=== PATIENT | male | born 1965 | race Caucasian/White ===

== ENCOUNTER 2018-08-19 11:11 | Emergency (ER) | payer BC ==
[2018-08-19] MEDS ORDERED: Sodium Chloride 0.9% 10 ML Syringe FLUSH PRN (11:33)
--- NOTE | 2018-08-19 11:40 | EDM.PDOC ---
ED HPI GENERAL MEDICAL PROBLEM - General Chief Complaint: Chest Pain Stated Complaint: CHEST PAIN Time Seen by Provider: 08/19/18 11:23 Source of Information: Reports: Patient, RN Notes Reviewed - History of Present Illness INITIAL COMMENTS - FREE TEXT/NARRATIVE: 53-year-old male comes in with left anterior chest discomfort. He's been having this off and on for the past week or so but somewhat more frequently the last couple of days. He describes this as an ache type feeling that will at times radiate to the left shoulder or to the left back. Episodes of discomfort are usually very brief. Had no nausea vomiting or diaphoresis. He has had history of hypertension and has been on medication for that for about 15 years. He has had a lot of chest discomfort in the past and has had 2 prior angiograms. He states at the time of his last angiogram 5-7 years ago there was no significant blockage. He does not smoke and is not diabetic. Chest Pain Score (Numeric/FACES): 4 - Related Data Allergies Allergy/AdvReac Type Severity Reaction Status Date / Time No Known Allergies Allergy Verified 08/19/18 11:20 Home Meds: Home Meds Aspirin [Halfprin] 81 mg PO DAILY 02/21/14 [History] Ezetimibe/Simvastatin [Vytorin 10-20 mg Tablet] 10 - 20 mg PO DAILY 02/21/14 [ History] Lisinopril 5 mg PO DAILY 02/21/14 [History] Metoprolol Succinate 50 mg PO DAILY 02/21/14 [History] Pantoprazole Sodium 40 mg PO DAILY 02/21/14 [History] Past Medical History Cardiovascular History: Reports: High Cholesterol, Hypertension Social & Family History - Tobacco Use Smoking Status *Q: Never Smoker Second Hand Smoke Exposure: No - Caffeine Use Caffeine Use: Reports: Coffee - Recreational Drug Use Recreational Drug Use: No ED ROS GENERAL - Review of Systems Review Of Systems: See Below Constitutional: Denies: Fever, Chills, Diaphoresis HEENT: Reports: No Symptoms Respiratory: Denies: Shortness of Breath, Pleuritic Chest Pain, Cough Cardiovascular: Denies: Chest Pain GI/Abdominal: Denies: Abdominal Pain, Nausea, Vomiting Musculoskeletal: Reports: Shoulder Pain (Occasional). Denies: Arm Pain, Leg Pain Skin: Reports: No Symptoms Neurological: Reports: No Symptoms ED EXAM, GENERAL - Physical Exam Exam: See Below General Appearance: Alert, No Apparent Distress Eye Exam: Bilateral Eye: PERRL Head: Atraumatic. No: Facial Swelling Neck: Supple, Full Range of Motion Respiratory/Chest: No Respiratory Distress, Lungs Clear, Normal Breath Sounds, Chest Non-Tender Cardiovascular: Regular Rate, Rhythm GI/Abdominal: Soft, Non-Tender Back Exam: No: CVA Tenderness (L), CVA Tenderness (R) Extremities: Normal Inspection. No: Pedal Edema, Leg Pain Neurological: Alert, Oriented, No Motor/Sensory Deficits Skin Exam: Warm, Dry, Normal Color Course - Vital Signs Last Recorded V/S: Last Vital Signs Temp 98.1 F 08/19/18 11:18 Pulse 54 L 08/19/18 11:18 Resp 16 08/19/18 11:18 BP 136/96 H 08/19/18 11:18 Pulse Ox 96 08/19/18 11:18 - Orders/Labs/Meds Orders: Active Orders 24 hr Category Date Time Status EKG 12 Lead [EKG Documentation Completion] [RC] STAT Care 08/19/18 11:35 Active Peripheral IV Care [RC] . DIRECTED Care 08/19/18 11:34 Active Chest 1V Frontal [CR] Stat Exams 08/19/18 11:34 Taken Peripheral IV Insertion Adult [OM.PC] Stat Oth 08/19/18 11:34 Ordered Labs: Laboratory Tests 08/19/18 08/19/18 08/19/18 Range/Units 11:50 11:50 13:25 WBC 7.31 (4.23-9.07) K/mm3 RBC 5.36 (4.63-6.08) M/mm3 Hgb 16.3 (13.7-17.5) gm/L Hct 47.2 (40.1-51.0) % MCV 88.1 (79.0-92.2) fl MCH 30.4 (25.7-32.2) pg MCHC 34.5 (32.2-35.5) g/dl RDW Std Deviation 40.9 (35.1-43.9) fL Plt Count 156 L (163-337) K/mm3 MPV 11.4 (9.4-12.3) fl Neut % (Auto) 61.3 (34.0-67.9) % Lymph % (Auto) 29.3 (21.8-53.1) % [place] % (Auto) 5.9 (5.3-12.2) % Eos % (Auto) 3.0 (0.8-7.0) Baso % (Auto) 0.4 (0.1-1.2) % Neut # (Auto) 4.48 (1.78-5.38) K/mm3 Lymph # (Auto) 2.14 (1.32-3.57) K/mm3 [place] # (Auto) 0.43 (0.30-0.82) K/mm3 Eos # (Auto) 0.22 (0.04-0.54) K/mm3 Baso # (Auto) 0.03 (0.01-0.08) K/mm3 Sodium 142 (136-145) mEq/L Potassium 4.1 (3.5-5.1) mEq/L Chloride 106 (98-107) mEq/L Carbon Dioxide 26 (21-32) mEq/L Anion Gap 14.1 (5-15) BUN 15 (7-18) mg/dL Creatinine 1.1 (0.7-1.3) mg/dL Est Cr Clr Drug Dosing 73.41 mL/min Estimated GFR (MDRD) > 60 (>60) mL/min BUN/Creatinine Ratio 13.6 L (14-18) Glucose 118 H (74-106) mg/dL Calcium 9.4 (8.5-10.1) mg/dL Total Bilirubin 1.3 H (0.2-1.0) mg/dL AST 58 H (15-37) U/L ALT 103 H (16-63) U/L Alkaline Phosphatase 67 (46-116) U/L Troponin I < 0.017 < 0.017 (0.00-0.056) ng/mL Total Protein 7.5 (6.4-8.2) g/dl Albumin 3.8 (3.4-5.0) g/dl Globulin 3.7 gm/dL Albumin/Globulin Ratio 1.0 (1-2) Meds: Medications Discontinued Medications Generic Name Dose Route Start Last Admin Trade Name Freq PRN Reason Stop Dose Admin Sodium Chloride 10 ml 08/19/18 11:33 08/19/18 11:54 Saline Flush FLUSH 10 ml ASDIRECTED PRN Administration Keep Vein Open - Re-Assessments/Exams Free Text/Narrative Re-Assessment/Exam: 08/19/18 14:54 Repeat troponin did come back normal as well. X-ray was normal, EKG looked fine. Other labs all relatively normal. Bilirubin, liver enzymes very slightly elevated but he has not been having right upper abdominal discomfort or upper abd discomfort. Discharge instructions as documented. Departure - Departure Time of Disposition: 15:00 Disposition: Home, Self-Care 01 Condition: Fair Clinical Impression: Atypical chest pain Instructions: Nonspecific Chest Pain, [id number] Referrals: Lesli Aden MD [Primary Care Provider] - Forms: ED Department Discharge Additional Instructions: Continue current medications as prescribed, plan to follow-up with your regular medical provider in about 2-1/2 weeks as planned. Return to ED as needed if symptoms worsening in any way. - My Orders Last 24 Hours: My Active Orders 08/19/18 11:34 Peripheral IV Care [RC] . DIRECTED Chest 1V Frontal [CR] Stat Peripheral IV Insertion Adult [OM.PC] Stat 08/19/18 11:35 EKG 12 Lead [EKG Documentation Completion] [RC] STAT - Assessment/Plan Last 24 Hours: My Active Orders 08/19/18 11:34 Peripheral IV Care [RC] . DIRECTED Chest 1V Frontal [CR] Stat Peripheral IV Insertion Adult [OM.PC] Stat 08/19/18 11:35 EKG 12 Lead [EKG Documentation Completion] [RC] STAT
--- NOTE | 2018-08-20 18:27 | CR ---
Chest: Portable view of the chest was obtained. Comparison: No prior chest x-ray. Heart size and mediastinum are normal. Lungs are clear. Bony structures are grossly intact. Impression: 1. Nothing acute is appreciated on portable chest x-ray. Diagnostic code #1
== END 2018-08-19 14:55 | disposition home or self-care (01) ==
LOC: JD.ED 11:11
DX: R07.89 Other chest pain (principal); I10 Essential (primary) hypertension; E78.00 Pure hypercholesterolemia, unspecified; Z79.82 Long term (current) use of aspirin; Z79.899 Other long term (current) drug therapy
CPT/HCPCS: 36415; 71045; 71045-26; 80053; 84484; 85025; 93005; 99284; 99285-25

== ENCOUNTER 2020-01-18 22:59 | Emergency (ER) | payer BC ==
--- NOTE | 2020-01-18 23:34 | EDM.PDOC ---
ED HPI GENERAL MEDICAL PROBLEM - General Chief Complaint: Chest Pain Stated Complaint: CHEST PAIN Time Seen by Provider: 01/18/20 23:05 Source of Information: Reports: Patient, Family () History Limitations: Reports: No Limitations - History of Present Illness INITIAL COMMENTS - FREE TEXT/NARRATIVE: Mr. Le is a very pleasant 54-year-old gentleman with a past medical history significant for coronary artery disease, who tells me that he had been experiencing sharp retrosternal chest pain with associated dyspnea on and off for the past 6 to 8 months. Sometimes the pain would occur at rest, but most of the time it occurred with exertion. He saw his PCP on 01/10/2020, who ordered a cardiac CT, which returned with a high calcium score. The patient then saw a oil tank car cleaner this past 01/16/2020, who ordered him to go to [facility], where he was admitted to the hospital. The following day, yesterday, , 01/17/2020, the patient underwent a coronary angiogram and placement of a single drug-eluting stent to the ostial RCA. The patient was discharged home earlier today. He now presents to the ED stating that he developed a retrosternal burning chest pain that radiated to his left scapula around 13:00 this afternoon, while sitting in a chair. The pain came and went, lasting about 1 hour, then recurring about 30 to 40 minutes later. He had no associated dyspnea, diaphoresis, nausea, or sense of impending doom, and he notes that the sensation was different than the chest pain that he has been experiencing for the past 6 to 8 months. He states that he took a single sublingual nitroglycerin around 22:30, which gave him near complete relief of his pain. At present, he is now feeling only a slight amount of discomfort under his left pectoralis muscle. Here in the ED, the patient is initially found to be slightly bradycardic at 59 bpm, otherwise, he is hemodynamically stable, afebrile, saturating 98% on room air. Other than the chest pain issue, the patient denies recent fever, chills, sore throat, ear pain, nasal or sinus congestion, cough, dyspnea, palpitations, nausea, vomiting, constipation, diarrhea, abdominal pain, urinary symptoms, recent weight gain or weight loss, recent bloody bowel movements or black bowel movements, recent joint aches, headaches, or rashes. The patient's PCP is Dr. Lesli Aden. The [employer] Tender that the patient saw on 01/16/[address] Sanjuanita Edmonds. The [employer] Tender that performed the coronary angiogram was Dr. Torito Bunch. Mid-Sternal Chest Pain Score (Numeric/FACES): 6 - Related Data Allergies Allergy/AdvReac Type Severity Reaction Status Date / Time No Known Allergies Allergy Verified 01/18/20 23:03 Home Meds: Home Meds Aspirin [Halfprin] 81 mg PO DAILY 02/21/14 [History] Lisinopril 5 mg PO DAILY 02/21/14 [History] Metoprolol Succinate 50 mg PO DAILY 02/21/14 [History] Pantoprazole Sodium 40 mg PO DAILY 02/21/14 [History] Nitroglycerin [Nitrostat] 0.4 mg SL ASDIRECTED PRN 01/18/20 [History] Prasugrel HCl [Effient] 10 mg PO DAILY 01/18/20 [History] Rosuvastatin Calcium 20 mg PO DAILY 01/18/20 [History] Isosorbide Mononitrate [Imdur] 1 tab PO QAM #30 tab.er 01/19/20 [Rx] Past Medical History HEENT History: Reports: Impaired Vision (wears glasses) Cardiovascular History: Reports: CAD, High Cholesterol, Hypertension Gastrointestinal History: Reports: GERD Endocrine/Metabolic History: Reports: Other (See Below) (Prediabetes) - Past Surgical History Cardiovascular Surgical History: Reports: Coronary Artery Stent (ostial RCA, 01/17/2020), Other (See Below) (Coronary angiogram x 3) GI Surgical History: Reports: Hernia, Abdominal (umbilical, when 9 months old) Social & Family History - Tobacco Use Smoking Status *Q: Never Smoker Tobacco Use Within Last Twelve Months: Smokeless Tobacco (Quit chewing 2004) - Caffeine Use Caffeine Use: Reports: Coffee - Alcohol Use Alcohol Use History: No Date/Time of Last Drink Comment: Stopped drinking 1985 - Recreational Drug Use Recreational Drug Use: No - Living Situation & Occupation Living situation: Reports: , with Spouse, with Family (1 aduld child) 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 ED EXAM, GENERAL - Physical Exam Exam: See Below Exam Limited By: No Limitations General Appearance: Alert, WD/WN, No Apparent Distress Eye Exam: Bilateral Eye: EOMI, Normal Inspection Ears: Normal External Exam, Hearing Grossly Normal Nose: Normal Inspection Throat/Mouth: Normal Inspection, Normal Lips, Normal Voice, No Airway Compromise Head: Atraumatic, Normocephalic Neck: Normal Inspection, Full Range of Motion Respiratory/Chest: No Respiratory Distress, Lungs Clear, Normal Breath Sounds, No Accessory Muscle Use, Chest Non-Tender (including the sternum and left chest) Cardiovascular: Normal Peripheral Pulses, No Edema, No Gallop, No JVD, No Murmur, No Rub, Bradycardia (regular) Peripheral Pulses: 3+: Radial (L), Radial (R) GI/Abdominal: Normal Bowel Sounds, Soft, Non-Tender, No Organomegaly, No Distention, No Abnormal Bruit, No Mass (Male) Exam: Deferred Rectal (Males) Exam: Deferred Back Exam: Normal Inspection, Full Range of Motion, NT Extremities: Normal Inspection, Normal Range of Motion, No Pedal Edema, Normal Capillary Refill Neurological: Alert, Oriented, Normal Cognition, No Motor/Sensory Deficits Psychiatric: Normal Affect Skin Exam: Warm, Dry, Intact, Normal Color, No Rash EKG INTERPRETATION EKG Date: 01/18/20 Time: 23:01 Rhythm: NSR Rate (Beats/Min): 60 Ione: LAD-Left Ione Deviation P-Wave: Present QRS: Other (Late transition) ST-T: Normal QT: Normal Comparison: No Change (08/19/2018) Course - Vital Signs Last Recorded V/S: Last Vital Signs Temp 36.4 C 01/18/20 23:03 Pulse 59 L 01/18/20 23:03 Resp 19 01/18/20 23:03 BP 136/85 01/18/20 23:03 Pulse Ox 98 01/18/20 23:03 - Orders/Labs/Meds Orders: Active Orders 24 hr Category Date Time Status EKG 12 Lead [EKG Documentation Completion] [RC] STAT Care 01/18/20 23:17 Active Chest 2V [CR] Stat Exams 01/18/20 23:29 Taken Labs: Laboratory Tests 01/18/20 01/18/20 01/19/20 Range/Units 23:05 23:05 01:25 WBC 7.92 (4.23-9.07) K/mm3 RBC 5.25 (4.63-6.08) M/mm3 Hgb 16.3 (13.7-17.5) gm/dl Hct 46.7 (40.1-51.0) % MCV 89.0 (79.0-92.2) fl MCH 31.0 (25.7-32.2) pg MCHC 34.9 (32.2-35.5) g/dl RDW Std Deviation 40.1 (35.1-43.9) fL Plt Count 178 (163-337) K/mm3 MPV 11.4 (9.4-12.3) fl Neut % (Auto) 57.2 (34.0-67.9) % Lymph % (Auto) 32.1 (21.8-53.1) % [place] % (Auto) 8.6 (5.3-12.2) % Eos % (Auto) 1.6 (0.8-7.0) Baso % (Auto) 0.4 (0.1-1.2) % Neut # (Auto) 4.53 (1.78-5.38) K/mm3 Lymph # (Auto) 2.54 (1.32-3.57) K/mm3 [place] # (Auto) 0.68 (0.30-0.82) K/mm3 Eos # (Auto) 0.13 (0.04-0.54) K/mm3 Baso # (Auto) 0.03 (0.01-0.08) K/mm3 Sodium 140 (136-145) mEq/L Potassium 4.0 (3.5-5.1) mEq/L Chloride 104 (98-107) mEq/L Carbon Dioxide 29 (21-32) mEq/L Anion Gap 11.0 (5-15) BUN 14 (7-18) mg/dL Creatinine 1.4 H (0.7-1.3) mg/dL Est Cr Clr Drug Dosing 60.83 mL/min Estimated GFR (MDRD) 52 (>60) mL/min BUN/Creatinine Ratio 10.0 L (14-18) Glucose 108 H (74-106) mg/dL Calcium 9.2 (8.5-10.1) mg/dL Total Bilirubin 1.5 H (0.2-1.0) mg/dL AST 26 (15-37) U/L ALT 47 (16-63) U/L Alkaline Phosphatase 63 (46-116) U/L Troponin I 0.066 H* 0.072 H* (0.00-0.056) ng/mL Total Protein 7.7 (6.4-8.2) g/dl Albumin 3.8 (3.4-5.0) g/dl Globulin 3.9 gm/dL Albumin/Globulin Ratio 1.0 (1-2) - Re-Assessments/Exams Free Text/Narrative Re-Assessment/Exam: 01/18/20 23:31 As above, the patient received a single drug-eluting stent to his ostial RCA yesterday, 01/17/2020, then developed a midsternal burning that radiates to his left scapula around 13:00 this afternoon. No associated symptoms, and the patient has not identified any modifiers, however, he does report that he had significant improvement in his symptoms after he took a single sublingual nitroglycerin. At present, he has only mild left-sided chest discomfort. Of interest, he describes the pain that brings him in tonight is different than the pain that he had been experiencing for the past 6 to 8 months that ultimately resulted in him getting the coronary angiogram and coronary stent. The ECG obtained at triage is unremarkable, with no ischemic changes. I have ordered a work-up that includes blood work and a chest x-ray. Once I have those results, I will endeavor to contact the [facility] [facility] [facility]ender on-call at [facility]. 01/18/20 23:54 Two-view chest radiograph appears to be grossly normal. The cardiac silhouette is within normal limits. No pulmonary vascular congestion. No pleural effus ions. No focal infiltrate. No pneumothorax. Formal read per the Radiologist pending. 01/19/20 00:09 The patient's CBC is unremarkable. His CMP is remarkable for a Cr noted at 1.4, and a blood glucose slightly elevated at 108. His TBil is elevated at 1.5, with the remainder of his CMP being unremarkable. His troponin is mildly elevated at 0.066. 01/19/20 00:56 Case discussed with Rose Mary at [facility] at 00:40. She attempted to contact Dr. Pelletier, without success. She will call me back once she has been able to contact him. 01/19/20 01:17 Called back by Rose Mary with Dr. Bernardo, at 01:12. Dr. Bernardo was able to look at the patient's medical records. She does not believe that the patient's stent thrombosed, as that would cause a STEMI, given its location. She recommended th at we repeat a troponin, but if not significantly elevated, then the patient may be discharged home. She recommended that I prescribe for him Imdur 30 mg po QAM, and have the patient take his sublingual nitroglycerin on an as-needed basis. The patient is going to be following up with his [employer] Tender in 1 week - they will be calling him on Tuesday to set an appointment. 01/19/20 01:23 The above plan was discussed with the patient and his . They are agreeable. His second troponin is being drawn now. 01/19/20 02:23 The patient's repeat troponin is only slightly higher than previously, now at 0.072. 01/19/20 02:27 Test results discussed with the patient and his . I will discharge him home with a prescription for Imdur. Today being January 18, the only pharmacy that will be open today is the [facility], and they will only be open between 1 - 3 PM today. The patient will continue to take his sublingual nitroglycerin on an as-needed basis, and he will follow-up with his [employer] Tender next week. Departure - Departure Time of Disposition: 02:28 Disposition: Home, Self-Care 01 Condition: Good Clinical Impression: Angina pectoris Prescriptions: Isosorbide Mononitrate [Imdur] 1 tab PO QAM #30 tab.er Instructions: Angina, [id number] Referrals: Lesli Aden MD [Primary Care Provider] - Torito Bunch MD [Ordering Only Provider] - Sanjuanita Edmonds MD [Ordering Only Provider] - Forms: ED Department Discharge Additional Instructions: You were seen in the emergency room for central chest pain that radiated to your left shoulder blade. Work-up in the ER included blood work, a chest x-ray, and an ECG. Your ECG showed no ischemic changes, however, your troponin (heart enzyme) was slightly elevated. Your case was discussed with the [employer] Tender Dr. Bernardo, who recommended that check a second troponin, and if not significantly higher than the first one, that you be discharged home and start taking the long-acting nitroglycerin type medicine Imdur. A prescription for Imdur has been sent to the [facility]. The pharmacy will be open between 1:00 and 3:00 this afternoon. Take 1 tablet of Imdur every morning, as prescribed. You may continue to take your sublingual nitroglycerin on an as-needed basis. You will be contacted by your [employer] Tender's office on 01/21/2020, in order to make an appointment to see your [employer] Tender in about a week. If any other problems, including chest pain not relieved by nitroglycerin, please do not hesitate to return to the ER. Sepsis Event Note (ED) - Evaluation Sepsis Screening Result: No Definite Risk - Focused Exam Vital Signs: Vital Signs Temp Pulse Resp BP Pulse Ox 01/18/20 23:03 36.4 C 59 L 19 136/85 98 - My Orders Last 24 Hours: My Active Orders 01/18/20 23:17 EKG 12 Lead [EKG Documentation Completion] [RC] STAT 01/18/20 23:29 Chest 2V [CR] Stat - Assessment/Plan Last 24 Hours: My Active Orders 01/18/20 23:17 EKG 12 Lead [EKG Documentation Completion] [RC] STAT 01/18/20 23:29 Chest 2V [CR] Stat
--- NOTE | 2020-01-19 09:37 | CR ---
Chest: 2 views of the chest were obtained. Comparison: No prior chest imaging is available. Heart size and mediastinum are normal. Lungs are clear with no acute parenchymal change. Bony structures shows endplate spurring and scattered disc space narrowing within the spine. Impression: 1. Nothing acute is seen on 2 view chest x-ray. Diagnostic code #2 This report was dictated in MDT
== END 2020-01-19 02:43 | disposition home or self-care (01) ==
LOC: JD.ED 22:59
DX: I20.9 Angina pectoris, unspecified (principal); I10 Essential (primary) hypertension; E78.00 Pure hypercholesterolemia, unspecified; K21.9 Gastro-esophageal reflux disease without esophagitis; Z95.5 Presence of coronary angioplasty implant and graft; Z79.82 Long term (current) use of aspirin; Z79.899 Other long term (current) drug therapy
CPT/HCPCS: 36415; 71046; 71046-26; 80053; 84484; 85025; 93005; 93010; 99284; 99285-25

== ENCOUNTER 2020-01-20 23:22 | Emergency (ER) | payer BC ==
[2020-01-20] MEDS ORDERED: Lactated Ringers 1,000 ML IV SCH (23:45)
[2020-01-20] MEDS ORDERED: Aspirin 81 MG Tab.Chew PO ONE (23:50)
--- NOTE | 2020-01-20 23:50 | EDM.PDOC ---
ED HPI GENERAL MEDICAL PROBLEM - General Chief Complaint: Chest Pain Stated Complaint: chest pain Time Seen by Provider: 01/20/20 23:40 - History of Present Illness INITIAL COMMENTS - FREE TEXT/NARRATIVE: 54-year-old male presents the emergency room with chest pain. On the second of this month the patient had a stent placed. And he has had intermittent chest discomfort since that time he was seen here Tuesday the day he was discharged from the hospital in [place] and he was started on Imdur 30 mg daily he still having intermittent pain. He last tried nitro around 5:00 this evening this helped perhaps a little bit. But he has not had complete relief. Describes his pain as being in the substernal area and radiating to his shoulder blade on the left. Occasionally to his shoulder. The patient has not been very active and often gets his discomfort at rest. The pain does not seem to have a positional component with it. The patient does not have any heartburn or reflux symptoms. Middle Chest Pain Score (Numeric/FACES): 5 - Related Data Allergies Allergy/AdvReac Type Severity Reaction Status Date / Time No Known Allergies Allergy Verified 01/20/20 23:35 Home Meds: Home Meds Aspirin [Halfprin] 81 mg PO DAILY 02/21/14 [History] Lisinopril 5 mg PO DAILY 02/21/14 [History] Metoprolol Succinate 50 mg PO DAILY 02/21/14 [History] Pantoprazole Sodium 40 mg PO DAILY 02/21/14 [History] Nitroglycerin [Nitrostat] 0.4 mg SL ASDIRECTED PRN 01/18/20 [History] Prasugrel HCl [Effient] 10 mg PO DAILY 01/18/20 [History] Rosuvastatin Calcium 20 mg PO DAILY 01/18/20 [History] Isosorbide Mononitrate [Imdur] 1 tab PO QAM #30 tab.er 01/19/20 [Rx] Isosorbide Mononitrate [Imdur] 60 mg PO DAILY #30 tab.er 01/21/20 [Rx] Past Medical History HEENT History: Reports: Impaired Vision Other HEENT History: Wears glasses Cardiovascular History: Reports: CAD, High Cholesterol, Hypertension Gastrointestinal History: Reports: GERD Endocrine/Metabolic History: Reports: Other (See Below) - Past Surgical History Cardiovascular Surgical History: Reports: Coronary Artery Stent, Other (See Below) GI Surgical History: Reports: Hernia, Abdominal Social & Family History - Tobacco Use Smoking Status *Q: Never Smoker - Caffeine Use Caffeine Use: Reports: Coffee - Recreational Drug Use Recreational Drug Use: No - Living Situation & Occupation Living situation: Reports: , with Spouse, with Family (1 aduld child) 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[employer]) ED ROS GENERAL - Review of Systems Review Of Systems: See Below Constitutional: Reports: No Symptoms HEENT: Reports: No Symptoms Respiratory: Reports: No Symptoms Cardiovascular: Reports: Chest Pain GI/Abdominal: Reports: No Symptoms : Reports: No Symptoms Musculoskeletal: Reports: No Symptoms Neurological: Reports: No Symptoms ED EXAM, GENERAL - Physical Exam Exam: See Below Exam Limited By: No Limitations General Appearance: Alert, No Apparent Distress Head: Atraumatic, Normocephalic Neck: Normal Inspection, Supple, Non-Tender, Full Range of Motion Course - Vital Signs Last Recorded V/S: Last Vital Signs Temp 36.1 C 01/20/20 23:28 Pulse 54 L 01/20/20 23:28 Resp 14 01/20/20 23:28 BP 112/73 01/21/20 00:36 Pulse Ox 97 01/20/20 23:28 - Orders/Labs/Meds Orders: Active Orders 24 hr Category Date Time Status EKG 12 Lead [EKG Documentation Completion] [RC] STAT Care 01/20/20 23:36 Active Chest 1V Frontal [CR] Stat Exams 01/20/20 23:52 Taken Lactated Ringers [Ringers, Lactated] 1,000 ml Med 01/20/20 23:45 Active IV ASDIRECTED Nitroglycerin [Nitrostat] Med 01/20/20 23:50 Active 0.4 mg SL Q5M PRN Medication Orders Lactated Ringer's (Ringers, Lactated) 1,000 mls @ 25 mls/hr IV ASDIRECTED LORA Last Admin: 01/21/20 00:00 Dose: 25 mls/hr Documented by: MEREDITH Nitroglycerin (Nitrostat) 0.4 mg SL Q5M PRN PRN Reason: Chest Pain Last Admin: 01/21/20 00:36 Dose: 0.4 mg Documented by: Admin: 01/20/20 23:58 Dose: 0.4 mg Documented by: MEREDITH Labs: Laboratory Tests 01/20/20 01/20/20 01/20/20 Range/Units 23:55 23:55 23:55 WBC 8.17 (4.23-9.07) K/mm3 RBC 5.20 (4.63-6.08) M/mm3 Hgb 16.1 (13.7-17.5) gm/dl Hct 46.2 (40.1-51.0) % MCV 88.8 (79.0-92.2) fl MCH 31.0 (25.7-32.2) pg MCHC 34.8 (32.2-35.5) g/dl RDW Std Deviation 40.0 (35.1-43.9) fL Plt Count 164 (163-337) K/mm3 MPV 11.7 (9.4-12.3) fl Neut % (Auto) 56.5 (34.0-67.9) % Lymph % (Auto) 31.6 (21.8-53.1) % Eagle % (Auto) 8.9 (5.3-12.2) % Eos % (Auto) 2.1 (0.8-7.0) Baso % (Auto) 0.5 (0.1-1.2) % Neut # (Auto) 4.62 (1.78-5.38) K/mm3 Lymph # (Auto) 2.58 (1.32-3.57) K/mm3 Eagle # (Auto) 0.73 (0.30-0.82) K/mm3 Eos # (Auto) 0.17 (0.04-0.54) K/mm3 Baso # (Auto) 0.04 (0.01-0.08) K/mm3 PT 11.8 (9.7-12.0) SECONDS INR 1.09 APTT 26 (22-31) SECONDS Sodium 139 (136-145) mEq/L Potassium 4.0 (3.5-5.1) mEq/L Chloride 103 (98-107) mEq/L Carbon Dioxide 26 (21-32) mEq/L Anion Gap 14.0 (5-15) BUN 14 (7-18) mg/dL Creatinine 1.3 (0.7-1.3) mg/dL Est Cr Clr Drug Dosing 65.51 mL/min Estimated GFR (MDRD) 57 (>60) mL/min BUN/Creatinine Ratio 10.8 L (14-18) Glucose 89 (74-106) mg/dL Calcium 9.2 (8.5-10.1) mg/dL Total Bilirubin 1.5 H (0.2-1.0) mg/dL AST 50 H (15-37) U/L ALT 74 H (16-63) U/L Alkaline Phosphatase 67 (46-116) U/L Troponin I 0.022 (0.00-0.056) ng/mL Total Protein 7.7 (6.4-8.2) g/dl Albumin 3.9 (3.4-5.0) g/dl Globulin 3.8 gm/dL Albumin/Globulin Ratio 1.0 (1-2) Meds: Medications Generic Name Dose Route Start Last Admin Trade Name Freq PRN Reason Stop Dose Admin Lactated Ringer's 1,000 mls @ 25 mls/hr 01/20/20 23:45 01/21/20 00:00 Ringers, Lactated IV 25 mls/hr ASDIRECTED LORA Administration Nitroglycerin 0.4 mg 01/20/20 23:50 01/21/20 00:36 Nitrostat SL 0.4 mg Q5M PRN Administration Chest Pain Discontinued Medications Generic Name Dose Route Start Last Admin Trade Name Freq PRN Reason Stop Dose Admin Aspirin 324 mg 01/20/20 23:50 01/20/20 23:59 Aspirin PO 01/20/20 23:51 324 mg ONETIME ONE Administration Isosorbide Mononitrate 60 mg 01/21/20 01:53 01/21/20 02:18 Imdur PO 01/21/20 01:54 60 mg ONETIME ONE Administration - Re-Assessments/Exams Free Text/Narrative Re-Assessment/Exam: 01/21/20 01:59 Troponin is 0.022 the patient is relatively pain-free at this point after 2 sublingual nitro. His pressure was a little on the low side so we used care with given him the second dose. Chest x-ray is unrevealing EKG shows sinus at [address]-T wave changes he is got some nonspecific very subtle changes in V3 and V4. I discussed situation with Dr. Pelletier polisher apprentice metal bonding helper at [place] where the patient had the stent placed on the second. His recommendation was to increase the Imdur to 60 mg and to give him a dose now he has been taking Imdur 30 mg. He will also have the cardiology clinic called the patient to get him in sooner for recheck. At this time Dr. Pelletier does not feel that the patient is having a stent occlusion which I agree with but I did voice my concern about the continued angina. Departure - Departure Time of Disposition: 02:34 Disposition: Home, Self-Care 01 Clinical Impression: Angina pectoris Referrals: Lesli Aden MD [Primary Care Provider] - Forms: ED Department Discharge Additional Instructions: Return to the emergency room with any questions problems or worsening symptoms. Cardiology should contact you later today for an appointment in the near future. Continue your current medications. However, your Imdur 30 mg has been increased to 60 mg. This will be sent to the [facility] pharmacy. Sepsis Event Note (ED) - Evaluation Sepsis Screening Result: No Definite Risk - Focused Exam Vital Signs: Vital Signs Temp Pulse Resp BP BP Pulse Ox 01/21/20 00:36 112/73 01/20/20 23:58 120/68 01/20/20 23:28 36.1 C 54 L 14 137/83 97 - My Orders Last 24 Hours: My Active Orders 01/20/20 23:36 EKG 12 Lead [EKG Documentation Completion] [RC] STAT 01/20/20 23:45 Lactated Ringers [Ringers, Lactated] 1,000 ml IV ASDIRECTED 01/20/20 23:50 Nitroglycerin [Nitrostat] 0.4 mg SL Q5M PRN 01/20/20 23:52 Chest 1V Frontal [CR] Stat - Assessment/Plan Last 24 Hours: My Active Orders 01/20/20 23:36 EKG 12 Lead [EKG Documentation Completion] [RC] STAT 01/20/20 23:45 Lactated Ringers [Ringers, Lactated] 1,000 ml IV ASDIRECTED 01/20/20 23:50 Nitroglycerin [Nitrostat] 0.4 mg SL Q5M PRN 01/20/20 23:52 Chest 1V Frontal [CR] Stat
[2020-01-20] MEDS: Nitroglycerin 0.4 MG Tab.SL SL PRN (23:58)
[2020-01-21] MEDS: Nitroglycerin 0.4 MG Tab.SL SL PRN (00:36)
[2020-01-21] MEDS ORDERED: Isosorbide Mononitrate 60 MG Tab.ER PO ONE (01:53)
--- NOTE | 2020-01-21 07:04 | CR ---
Chest: Portable view of the chest was obtained. Comparison: Prior chest x-ray of 08/19/18. Heart size and mediastinum are normal. Lungs are clear with no acute parenchymal change. Bony structures are grossly intact. Impression: 1. Nothing acute is seen on portable chest x-ray. Diagnostic code #1 This report was dictated in MDT
== END 2020-01-21 02:51 | disposition home or self-care (01) ==
LOC: JD.ED 23:22
DX: I20.9 Angina pectoris, unspecified (principal); I10 Essential (primary) hypertension; E78.00 Pure hypercholesterolemia, unspecified; K21.9 Gastro-esophageal reflux disease without esophagitis; Z79.899 Other long term (current) drug therapy; Z79.82 Long term (current) use of aspirin; Z95.5 Presence of coronary angioplasty implant and graft
CPT/HCPCS: 36415; 71045; 80053; 84484; 85025; 85610; 85730; 93005; 96360; 96361; 99285; A9270; J7120; 93010; 99284

== ENCOUNTER 2020-02-26 08:45 | Emergency (ER) | payer BC ==
--- NOTE | 2020-02-26 09:14 | EDM.PDOC ---
ED HPI GENERAL MEDICAL PROBLEM - General Chief Complaint: Chest Pain Stated Complaint: CHEST PAIN Time Seen by Provider: 02/26/20 09:09 Source of Information: Reports: Patient History Limitations: Reports: No Limitations - History of Present Illness INITIAL COMMENTS - FREE TEXT/NARRATIVE: 54-year-old male presents to the ED for evaluation of recurrent left precordial chest pains that can come on at any time I while either he is working or even at rest. Patient has been seen on multiple 2 [place] occasions dating back to 2002 with chest pain. He has had multiple angiograms which did not show any significant abnormalities up until January of this year. On January 16 he underwent balloon angioplasty and stent placement in his right coronary artery on January [address] 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 Since that time he has been having intermittent chest pains and had a repeat angiogram on January 21 due to concerns of possible coronary artery dissection. No abnormalities were found. He states he did good up until Tuesday, February 22 when he started to develop left precordial chest pains that respond to nitroglycerin. He estimates he is taken 3 tablets of nitroglycerin in the last few days. He went to cardiac rehab this morning and does not have any chest pain but was referred to the ED for further evaluation because of the history of chest pains over the weekend. Dr. Bunch believes that he probably has a branch coronary artery that is small in caliber and likely causing his intermittent angina. He denies cough or sputum production. Not feel short of breath. He can localize the pain to his left anterior chest and in fact has bruises over the left fourth rib left anterior midclavicular line. He reports he does have a history of GERD but is been well controlled with Prilosec daily. Onset: Other (Left precordial chest pains off and on for the last 4 days.) Duration: Day(s):, Intermittent, Waxing/Waning Location: Reports: Chest (Left precordial chest pain with no radiation to his back neck or shoulder.) Quality: Reports: Pressure ( but there is also a dull ache pressure discomfort as well.), Stabbing (Pains are mostly sharp and stabbing) Severity: Moderate Improves with: Reports: Medication (Nitroglycerin has taken away the pain in all occasions.) Worsens with: Reports: None Context: Denies: Activity, Exercise, Lifting, Sick Contact, Trauma, Other Associated Symptoms: Reports: Chest Pain. Denies: No Other Symptoms (See history of present illness), Confusion, Cough, cough w sputum, Diaphoresis, Fever/Chills, Headaches, Loss of Appetite, Malaise, Nausea/Vomiting, Rash, Seizure, Shortness of Breath, Syncope, Weakness Treatments REGRADER: Reports: Other (see below) (Just his usual medications.) Chest Pain Score (Numeric/FACES): 2 - Related Data Allergies Allergy/AdvReac Type Severity Reaction Status Date / Time No Known Allergies Allergy Verified 02/26/20 08:56 Home Meds: Home Meds Aspirin [Halfprin] 81 mg PO DAILY 02/21/14 [History] Lisinopril 5 mg PO DAILY 02/21/14 [History] Metoprolol Succinate 50 mg PO DAILY 02/21/14 [History] Pantoprazole Sodium 40 mg PO DAILY 02/21/14 [History] Nitroglycerin [Nitrostat] 0.4 mg SL ASDIRECTED PRN 01/18/20 [History] Prasugrel HCl [Effient] 10 mg PO DAILY 01/18/20 [History] Rosuvastatin Calcium 20 mg PO DAILY 01/18/20 [History] Isosorbide Mononitrate [Imdur] 1 tab PO QAM #30 tab.er 01/19/20 [Rx] Isosorbide Mononitrate [Imdur] 60 mg PO DAILY #30 tab.er 01/21/20 [Rx] Past Medical History HEENT History: Reports: Impaired Vision Other HEENT History: Wears glasses Cardiovascular History: Reports: CAD, High Cholesterol, Hypertension, Stents (Single stent placed in the right coronary artery on January 17, [address] 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 Denies: Fever, Chills, Malaise HEENT: Reports: Glasses Respiratory: Reports: No Symptoms Cardiovascular: Reports: Chest Pain (Precordial chest pains off and on since stent placement January 16.). Denies: Dyspnea on Exertion, Edema, Lightheadedness, Orthopnea, Palpitations Endocrine: Reports: No Symptoms GI/Abdominal: Reports: No Symptoms : Reports: Frequency, Other Musculoskeletal: Reports: No Symptoms Skin: Reports: No Symptoms Neurological: Reports: No Symptoms (Treated x1) Psychiatric: Reports: No Symptoms Hematologic/Lymphatic: Reports: No Symptoms Immunologic: Reports: No Symptoms ED EXAM, GENERAL - Physical Exam Exam: See Below Exam Limited By: No Limitations General Appearance: Alert, WD/WN, No Apparent Distress, Anxious, Other (Mildly anxious. Temperature is 36.6. Heart rate was 57 and sinus bradycardia respiratory of 12 with O2 sats of 99% on room air. BP 120/82.) Eye Exam: Bilateral Eye: Normal Inspection (No scleral icterus or blepharal pallor.), PERRL Neck: Normal Inspection, Supple, Non-Tender, Full Range of Motion. No: Carotid Bruit, Lymphadenopathy (L), Lymphadenopathy (R), Thyromegaly Respiratory/Chest: No Respiratory Distress, Lungs Clear, Normal Breath Sounds, No Accessory Muscle Use, Other (He has chest wall tenderness in the midclavicular line over the fourth ribs bilaterally. There is also small bruises in this area measuring approximately 2 cm in diameter. He is not sure how they got there.) Cardiovascular: Normal Peripheral Pulses, Regular Rate, Rhythm, No Edema, No Gallop, No Murmur, No Rub Peripheral Pulses: 3+: Carotid (L), Carotid (R), Radial (L), Radial (R), Posterior Tibial (L), Posterior Tibial (R), Dorsalis Pedis (L), Dorsalis Pedis (R) GI/Abdominal: Normal Bowel Sounds, Soft, Non-Tender, No Organomegaly, No Mass, Pelvis Stable, Rebound Back Exam: Normal Inspection, Full Range of Motion. No: CVA Tenderness (L), CVA Tenderness (R) Extremities: Normal Inspection, Normal Range of Motion, Non-Tender, No Pedal Edema Neurological: Alert, Oriented, CN II-XII Intact, Normal Cognition Psychiatric: Normal Affect, Normal Mood Skin Exam: Warm, Dry, Intact, Normal Color, No Rash EKG INTERPRETATION EKG Date: 02/26/20 Time: 08:48 Rhythm: Other (Sinus bradycardia) Rate (Beats/Min): 57 [place]: LAD-Left [place] Deviation (Left axis deviation of -19 degrees) P-Wave: Present QRS: Other (Q waves in V1 and near Q wave in V2 consider old anteroseptal myocardial infarction. There is decreased voltage in the limb and precordial leads.) ST-T: Other (T wave flattening in leads III, aVF and aVL also in V1 and V2 nonspecific findings) Course - Vital Signs Last Recorded V/S: Last Vital Signs Temp 36.6 C 02/26/20 08:51 Pulse 56 L 02/26/20 09:55 Resp 16 02/26/20 09:55 BP 109/73 02/26/20 09:55 Pulse Ox 96 02/26/20 09:55 - Orders/Labs/Meds Orders: Active Orders 24 hr Category Date Time Status Chest 1V Frontal [CR] Stat Exams 02/26/20 09:09 Taken Sodium Chloride 0.9% [Normal Saline] 1,000 ml Med 02/26/20 09:15 Active IV ASDIRECTED Medication Orders Sodium Chloride (Normal Saline) 1,000 mls @ 100 mls/hr IV ASDIRECTED LORA Last Admin: 02/26/20 09:32 Dose: 100 mls/hr Documented by: CLAUDIA Labs: Laboratory Tests 02/26/20 02/26/20 02/26/20 Range/Units 08:58 08:58 08:58 WBC 7.49 (4.23-9.07) K/mm3 RBC 4.82 (4.63-6.08) M/mm3 Hgb 15.0 (13.7-17.5) gm/dl Hct 43.9 (40.1-51.0) % MCV 91.1 (79.0-92.2) fl MCH 31.1 (25.7-32.2) pg MCHC 34.2 (32.2-35.5) g/dl RDW Std Deviation 42.5 (35.1-43.9) fL Plt Count 167 (163-337) K/mm3 MPV 11.5 (9.4-12.3) fl Neut % (Auto) 66.5 (34.0-67.9) % Lymph % (Auto) 23.9 (21.8-53.1) % [place] % (Auto) 7.3 (5.3-12.2) % Eos % (Auto) 1.6 (0.8-7.0) Baso % (Auto) 0.4 (0.1-1.2) % Neut # (Auto) 4.98 (1.78-5.38) K/mm3 Lymph # (Auto) 1.79 (1.32-3.57) K/mm3 [place] # (Auto) 0.55 (0.30-0.82) K/mm3 Eos # (Auto) 0.12 (0.04-0.54) K/mm3 Baso # (Auto) 0.03 (0.01-0.08) K/mm3 PT 12.5 H (9.7-12.0) SECONDS INR 1.17 APTT 26 (22-31) SECONDS D-Dimer, Quantitative 0.62 H (0.19-0.50) mg/L Sodium 137 (136-145) mEq/L Potassium 4.0 (3.5-5.1) mEq/L Chloride 103 (98-107) mEq/L Carbon Dioxide 27 (21-32) mEq/L Anion Gap 11.0 (5-15) BUN 15 (7-18) mg/dL Creatinine 1.0 (0.7-1.3) mg/dL Est Cr Clr Drug Dosing 85.17 mL/min Estimated GFR (MDRD) > 60 (>60) mL/min BUN/Creatinine Ratio 15.0 (14-18) Glucose 102 (74-106) mg/dL Calcium 9.5 (8.5-10.1) mg/dL Magnesium 2.0 (1.8-2.4) mg/dl Total Bilirubin 1.7 H (0.2-1.0) mg/dL AST 30 (15-37) U/L ALT 57 (16-63) U/L Alkaline Phosphatase 66 (46-116) U/L Troponin I < 0.017 (0.00-0.056) ng/mL C-Reactive Protein <0.2 (<1.0) mg/dL NT-Pro-B Natriuret Pep (0-125) pg/mL Total Protein 7.7 (6.4-8.2) g/dl Albumin 3.9 (3.4-5.0) g/dl Globulin 3.8 gm/dL Albumin/Globulin Ratio 1.0 (1-2) 02/26/20 Range/Units 08:58 WBC (4.23-9.07) K/mm3 RBC (4.63-6.08) M/mm3 Hgb (13.7-17.5) gm/dl Hct (40.1-51.0) % MCV (79.0-92.2) fl MCH (25.7-32.2) pg MCHC (32.2-35.5) g/dl RDW Std Deviation (35.1-43.9) fL Plt Count (163-337) K/mm3 MPV (9.4-12.3) fl Neut % (Auto) (34.0-67.9) % Lymph % (Auto) (21.8-53.1) % [place] % (Auto) (5.3-12.2) % Eos % (Auto) (0.8-7.0) Baso % (Auto) (0.1-1.2) % Neut # (Auto) (1.78-5.38) K/mm3 Lymph # (Auto) (1.32-3.57) K/mm3 [place] # (Auto) (0.30-0.82) K/mm3 Eos # (Auto) (0.04-0.54) K/mm3 Baso # (Auto) (0.01-0.08) K/mm3 PT (9.7-12.0) SECONDS INR APTT (22-31) SECONDS D-Dimer, Quantitative (0.19-0.50) mg/L Sodium (136-145) mEq/L Potassium (3.5-5.1) mEq/L Chloride (98-107) mEq/L Carbon Dioxide (21-32) mEq/L Anion Gap (5-15) BUN (7-18) mg/dL Creatinine (0.7-1.3) mg/dL Est Cr Clr Drug Dosing mL/min Estimated GFR (MDRD) (>60) mL/min BUN/Creatinine Ratio (14-18) Glucose (74-106) mg/dL Calcium (8.5-10.1) mg/dL Magnesium (1.8-2.4) mg/dl Total Bilirubin (0.2-1.0) mg/dL AST (15-37) U/L ALT (16-63) U/L Alkaline Phosphatase (46-116) U/L Troponin I (0.00-0.056) ng/mL C-Reactive Protein (<1.0) mg/dL NT-Pro-B Natriuret Pep 81 (0-125) pg/mL Total Protein (6.4-8.2) g/dl Albumin (3.4-5.0) g/dl Globulin gm/dL Albumin/Globulin Ratio (1-2) Meds: Medications Generic Name Dose Route Start Last Admin Trade Name Freq PRN Reason Stop Dose Admin Sodium Chloride 1,000 mls @ 100 mls/hr 02/26/20 09:15 02/26/20 09:32 Normal Saline IV 100 mls/hr ASDIRECTED LORA Administration - Radiology Interpretation Free Text/Narrative:: 54-year-old male presents to the ED for evaluation of recurrent left precordial chest pains that he been having off and on since stent placement January [address] Bunch in [place]. He had a solitary stent placed in his right coronary artery. He states he had pains off and on in the left precordium for about a week after the procedure and in fact had a follow-up angiogram performed which did not reveal any abnormalities. It is felt that he has a branch vessel off of the rig ht coronary artery that is not receiving adequate perfusion at times causing unstable angina. Over the weekend he had chest pains Tuesday and Tuesday it which responded to nitroglycerin tablets. This morning upon attending cardiac rehab decision made to send him to the ED for further evaluation versus putting him through rehab treatment. He has no chest pain today other than what he can localized to his left anterior chest at the site of a bruise. Lungs are clear. Vital signs are stable. ECG does not show any signs of ischemia. Plan routine labs performed including cardiac markers. - Re-Assessments/Exams Free Text/Narrative Re-Assessment/Exam: 02/26/20 09:44 chest x-ray portable view reveals no abnormalities. Lung ordaz are clear. Cardiac silhouette is within normal limits. 02/26/20 09:50 White blood cell count is 7.49 with auto differential showing 66% neutrophils. Hemoglobin is poor 15.0 with hematocrit of 43.9. Platelet counts 167,000. PT is 12.5 with an INR of 1.17 mildly elevated. PTT is 26 d-dimer is minimally elevated at 0.62 likely from recent procedures. Sodium 137 with potassium of 4.0. Chloride 103 with a bicarb of 27. Anion gap is 11.0 with a BUN of 15. Creatinine is 1.0. GFR remains greater than 60. Glucose 102 with a calcium of 9.5. 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 Troponin I is less than 0.017 and C-reactive protein is less than 0.2. BNP is 81 with a total protein is 7.7. Albumin fraction is 3.9. Discussed the findings with the patient that no abnormalities were detected. He is still getting unstable angina likely from a branch vessel that is partially occluded and causing intermittent spasm. He is already on Imdur and therefore I really do not have anything else to offer him at this time. Advised him to give Dr. Bunch's office a call just to let them know how he is doing but at this point time I do not think any further intervention is indicated. At this time I have released him with no restrictions. He may return to cardiac rehab tomorrow. Departure - Departure Time of Disposition: 09:56 Disposition: Home, Self-Care 01 Reason for Transfer *Q: Other Condition: Fair Clinical Impression: Unstable angina pectoris Referrals: Lesli Aden MD [Primary Care Provider] - Forms: ED Department Discharge Additional Instructions: Evaluation in the emergency room this morning in regards to intermittent left precordial chest pains characteristic of angina or heart pain off and on over the weekend. This made cardiac rehab nurses nervous this morning in the elected to have you seen through the ED before you anticipated in any further cardiac rehab exercise program. As we have discussed you underwent coronary right coronary artery stent placement January [address] Bunch. Follow-up angiogram a week later due to pain did not show any evidence of coronary artery dissection after the balloon angioplasty was performed. You had done well up until this last weekend when you developed left precordial chest pains suggestive of angina or coronary artery spasm. I suspect there is a branch vessel off of the right coronary artery that is causing intermittent spasm and chest pains. This is not uncommon and often will last up to 3 months after a procedure and then usually dissipate or go away. At this time lab tests did not show any signs of elevated cardiac markers and no evidence of extra fluid in the lungs. Chest x-ray was within normal limits as well. It appears that you have unstable angina which means chest pain can come on at any time for no good reason such as heavy exertion etc. Again treat with nitroglycerin as you have been told in the past. I would suggest giving Dr. Bunch's office a call just let them know that you were experiencing some chest pains over the weekend but investigations today were all negative. At this time you were released with no restrictions and may return to cardiac rehab as planned. Sepsis Event Note (ED) - Evaluation Sepsis Screening Result: No Definite Risk - Focused Exam Vital Signs: Vital Signs Temp Pulse Resp BP Pulse Ox 02/26/20 09:55 56 L 16 109/73 96 02/26/20 08:51 36.6 C 57 L 12 120/82 99 - My Orders Last 24 Hours: My Active Orders 02/26/20 09:09 Chest 1V Frontal [CR] Stat 02/26/20 09:15 Sodium Chloride 0.9% [Normal Saline] 1,000 ml IV ASDIRECTED - Assessment/Plan Last 24 Hours: My Active Orders 02/26/20 09:09 Chest 1V Frontal [CR] Stat 02/26/20 09:15 Sodium Chloride 0.9% [Normal Saline] 1,000 ml IV ASDIRECTED
[2020-02-26] MEDS ORDERED: Sodium Chloride 0.9% 1,000 ML IV SCH (09:15)
--- NOTE | 2020-02-26 10:02 | CR ---
Chest: Portable view of the chest was obtained. Comparison: Previous chest x-ray of 01/20/20. Heart size and mediastinum are normal. Lungs are clear with no acute parenchymal change. Bony structures are grossly intact. Impression: 1. Nothing acute is appreciated on portable chest x-ray. Diagnostic code #1 This report was dictated in MDT
== END 2020-02-26 10:05 | disposition home or self-care (01) ==
LOC: JD.ED 08:45
DX: I25.110 Atherosclerotic heart disease of native coronary artery with unstable angina pectoris (principal); I10 Essential (primary) hypertension; E78.00 Pure hypercholesterolemia, unspecified; K21.9 Gastro-esophageal reflux disease without esophagitis; Z95.5 Presence of coronary angioplasty implant and graft; Z79.82 Long term (current) use of aspirin; Z79.899 Other long term (current) drug therapy
CPT/HCPCS: 36415; 71045; 80053; 83735; 83880; 84484; 85025; 85379; 85610; 85730; 86140; 99285; J7030; 93010; 99283